=== PATIENT | female | born 1930 | race Caucasian/White ===

== ENCOUNTER → 2016-09-18 | Outpatient (CLI) | payer BC ==
[~2016-09-18] MED LIST: ATOR-22 PO; CALCTAB5 PO; CLRUNK; CMDUNK; CRDCD240 PO; DYZ PO; MAGN400T6 PO; METO25TA56 PO
[2016-09-18 09:20] LABS: HEMATOCRIT 46.4 % (37-47); MEAN CELL VOLUME 93.5 fL (80-100); MEAN CORPUSCULAR HEMOGLOBIN 31.7 pg (25-34); MEAN CORPUSCULAR HGB CONC 33.8 g/dl (32-36); MEAN PLATELET VOLUME 11.2 fL (7.4-10.4); PLATELET COUNT 190 K/uL (130-400); RED BLOOD COUNT 4.96 M/uL (4.2-5.4); WHITE BLOOD COUNT 6.24 K/uL (4.8-10.8)
[2016-09-18 09:30] LABS: ALT/SGPT 32 U/L (12-78); BLOOD UREA NITROGEN 19 mg/dl (7-18); BUN/CREATININE RATIO 17.6 (10-20); CALCIUM 9.3 mg/dl (8.5-10.1); CARBON DIOXIDE 26 mmol/L (21-32); CHLORIDE 103 mmol/L (98-107); GLUCOSE 99 mg/dl (70-99); POTASSIUM 4.5 mmol/L (3.5-5.1); SODIUM 141 mmol/L (136-145)
[2016-09-18 09:40] LABS: ALB/GLOB RATIO 1.1 (0.9-2); ALKALINE PHOSPHATASE 95 U/L (45-117); AST/SGOT 29 U/L (15-37)
== END | disposition home or self-care (01) ==
LOC: C.LABFOXMH 08:51
PROVIDERS: ATTEND Internal Medicine
DX: I48.91 Unspecified atrial fibrillation (principal)

== ENCOUNTER → 2017-01-08 | Outpatient (CLI) | payer BC ==
[2017-01-08 10:33] LABS: BLOOD UREA NITROGEN 17 mg/dl (7-18); BUN/CREATININE RATIO 17.5 (10-20); CALCIUM 9.1 mg/dl (8.5-10.1); CARBON DIOXIDE 29 mmol/L (21-32); CHLORIDE 108 mmol/L (98-107); CREATININE 0.96 mg/dl (0.60-1.20); GLUCOSE 90 mg/dl (70-99); POTASSIUM 4.4 mmol/L (3.5-5.1); SODIUM 143 mmol/L (136-145)
== END | disposition home or self-care (01) ==
LOC: C.LABFOXMH 10:00
PROVIDERS: ATTEND Internal Medicine
DX: Z51.81 Encounter for therapeutic drug level monitoring (principal); Z79.899 Other long term (current) drug therapy

== ENCOUNTER → 2017-05-13 | Outpatient (CLI) | payer BC ==
[2017-05-13 09:03] LABS: ALT/SGPT 27 U/L (12-78); BLOOD UREA NITROGEN 21 mg/dl (7-18); BUN/CREATININE RATIO 20.6 (10-20); CALCIUM 9.5 mg/dl (8.5-10.1); CARBON DIOXIDE 29 mmol/L (21-32); CHLORIDE 106 mmol/L (98-107); GLUCOSE 98 mg/dl (70-99); POTASSIUM 4.5 mmol/L (3.5-5.1); SODIUM 141 mmol/L (136-145)
[2017-05-13 09:06] LABS: ALKALINE PHOSPHATASE 96 U/L (45-117); AST/SGOT 23 U/L (15-37)
== END | disposition home or self-care (01) ==
LOC: C.LABFOXMH 08:35
PROVIDERS: ATTEND Internal Medicine
DX: I48.91 Unspecified atrial fibrillation (principal)

== ENCOUNTER 2019-05-13 16:50 | Observation (INO) ==
--- NOTE | 2019-05-13 18:26 | XRay Report ---
XR chest 1V portable CLINICAL HISTORY: preop COMPARISON STUDY: No previous studies for comparison. FINDINGS: The bones soft tissues and hemidiaphragms are normal. The cardiomediastinal silhouette is n ormal. The lungs are clear. The pulmonary vasculature is normal. Mild stable cardiomegaly. Significan t degenerative change right shoulder IMPRESSION: Negative chest. The above report was generated using voice recognition software. It may contain grammatical, syntax or spelling errors. Electronically signed by: Onofre Pelayo M.D. 05/13/2019 6:24 PM
[2019-05-13 18:31] LABS: INR 1.3 (0.9-1.1); Partial Thromboplastin Ratio 1.6; Partial Thromboplastin Time 44.4 Seconds (21.0-31.0); Prothrombin Time 13.2 Seconds (9.0-12.0)
[2019-05-13] MEDS: dilTIAZem HCl 5 MG/ML 5 ML VIAL IV STA ×2 (19:13→19:15)
--- NOTE | 2019-05-13 19:44 | History & Physical Report ---
Date of Service May 13, 2019 Assessment & Plan (1) Acute appendicitis: we had a long discussion regarding her options. certainly she is a reasonably high surgical risk, in afib with tachycardia currently, and on xarelto. option 1: to OR tonight urgently. we discussed risks of bleedin g/SD/Pe/dvt/bleeding/injury to an organ etc.... option 2: admit. npo/antibiotics/pain control. obtain cardiac/medicine consults. if it improves we could consider elective appendectomy in 6-8 weeks vs observation. if symptoms do not improve or worsen, we may need to operate anyway this admission however this would buy us some time off the xarelto. added risk of possible perforation of the appendix with this option after discussion, she would like to attempt option 2 which I agree with. will admit and start zosyn and pain control. consult cardiology and IM. will hold xarelto. monitor pt and labs. (2) HTN (hypertension): (3) Permanent atrial fibrillation: History of Present Illness Primary Care Provider: Maggi Garcia pt began with mild abdominal pain on Saturday....got better on saturday but worse again on Saturday. Saw a CLIENT CARE REPRESENTATIVE who ordered a CT scan outpt which shows acute appendicitis. no perforation or abcess. ? developing phlegmon Allergies Allergy/AdvReac Type Severity Reaction Status Date / Time Sulfa (Sulfonamide Allergy Mild RASH ON Verified 05/13/19 18:18 Antibiotics) CHEST sulfa Allergy Rash Uncoded 05/13/19 18:18 Home Medications Home Medications Medication Instructions Recorded Confirmed Type acetaminophen 500 mg tablet 500 - 1,000 mg PO Q6H PRN 05/04/19 05/13/19 History atorvastatin 20 mg tablet 20 mg PO QPM 05/04/19 05/13/19 History cholecalciferol (vitamin D3) 2,000 2,000 units PO BID cap 05/04/19 05/13/19 History unit capsule diltiazem ER 240 mg capsule,24 240 mg PO DAILY 05/04/19 05/13/19 History hr,extended release ibuprofen 200 mg capsule 200 mg PO QID PRN 05/04/19 05/13/19 History loratadine 10 mg tablet 10 mg PO DAILY PRN 05/04/19 05/13/19 History magnesium oxide 400 mg (241.3 mg 400 mg PO BID tab 05/04/19 05/13/19 History magnesium) tablet metoprolol succinate ER 25 mg 25 mg PO BID 05/04/19 05/13/19 History tablet,extended release 24 hr metoprolol tartrate 25 mg tablet 25 mg PO BID PRN 05/04/19 05/13/19 History multivitamin tablet 1 tab PO DAILY 05/04/19 05/13/19 History rivaroxaban 15 mg tablet 15 mg PO QPM 05/04/19 05/13/19 History spironolactone 25 mg tablet 25 mg PO DAILY 05/04/19 05/13/19 History digoxin 125 mcg tablet 125 mcg PO Q2D #45 tab 05/05/19 05/13/19 Rx Past Med/Surg History Medical History Edema Hypercholesterolemia Hyperglycemia HTN (hypertension) Permanent atrial fibrillation Family History Other Family history non-contributory Social History Feels Safe at Home: Yes Smoking Status: Never smoker Review of Systems All systems reviewed & are unremarkable except as noted in HPI & below has been in normal state of alma without complaint prior to Saturday. See's Dr. Harmon for her Afib Physical Exam Constitutional: WD/WN, vitals as above no acute distress and not ill appearing Eyes: PERRL, conjunctivae normal, anicteric sclerae EOM intact bilaterally ENMT: external ear and nose normal, oropharynx normal Ears: no hearing impairment Neck: trachea midline, no thyromegaly Respiratory: normal respiratory effort; no respiratory distress and does not use accessory muscles Cardiovascular: Rate/Rhythm: + tachycardic and + irregularly irregular Gastrointestinal (Abdomen): Percussion/Palpation: + abdomen tender and abdomen soft; no guarding and abdomen not rigid +rovsing sign. no guarding or rigidity. appears comfortable. moving freely on the bed states pain a 6/10 which she blames primarily on drinking the contrast. Skin: no rashes, warm and dry Psychiatric: Orientation: alert, oriented x 3 and cooperative Results & Data Vital Signs (Past 12 Hours) Vital Signs Temp Pulse Pulse Resp BP BP Pulse Ox 05/13/19 19:23 117 H 20 145/96 H 99 05/13/19 19:00 145/96 H 05/13/19 18:50 115 H 17 98 05/13/19 18:40 115 H 24 98 05/13/19 18:35 144 H 23 97 05/13/19 18:31 152 H 39 H 137/94 05/13/19 17:00 36.4 C L 120 H 18 148/86 H 95
[2019-05-13] MEDS ORDERED: dilTIAZem HCl 5 MG/ML 5 ML VIAL IV STA (19:59)
[2019-05-13] MEDS ORDERED: ONDANSETRON INJ 2 MG/ML 2 ML VIAL IV STA (20:41)
[2019-05-13] MEDS ORDERED: MoRPHine SULFATE 4 MG/ML 1 ML CARP\\VIAL IV STA (20:41)
[2019-05-13] MEDS ORDERED: METOPROLOL TARTRATE 25 MG TAB PO PRN (21:48)
[2019-05-13] MEDS ORDERED: ONDANSETRON INJ 2 MG/ML 2 ML VIAL IV PRN (21:48)
[2019-05-13] MEDS ORDERED: PIPERACILL/TAZOBAC CONSULT ACTIVE PRN (21:48)
[2019-05-13] MEDS ORDERED: PIPERACILLIN/TAZOBACTAM 3.375 GM in DEXTROSE 5% 100 ML IV ONE (22:00)
--- NOTE | 2019-05-13 22:43 | Hospitalist Consultation ---
Date of Consultation May 13, 2019 Assessment & Plan (1) Acute appendicitis: Admitted under surgical team care N.p.o. IV fluid hydration Continue Zosyn Patient benefits from any surgical intervention outweighs risks thus she is medically cleared for appendicectomy, granted that if any urgent procedure needed to be done within the next 2 days, Xarelto should be reversed, pharmacy consult should be obtained to assist with reversal of Xarelto. Will obtain basic labs in a.m. including blood cultures (2) Atrial fibrillation with RVR: Last dose of Xarelto was today Can start heparin drip tomorrow If surgery is needed Xarelto will need to be reversed Currently rate controlled Continue digoxin, metoprolol, Cardizem (3) Hypercholesterolemia: Patient is on Lipitor at home. Okay to hold for few days and restart Lipitor at discharge (4) HTN (hypertension): Blood pressure is currently controlled on the metoprolol, Cardizem Okay to keep holding Aldactone History of Present Illness Attending Physician: Oni Barr, DO 88 years old female with past medical history of essential hypertension, atrial fibrillation on Xarelto and dyslipidemia, she was in her regular state of health until 3 days prior to admission when she developed lower abdominal pain. Pain was squeezing and crampy in nature, mild to moderate in intensity. Denies any diarrhea or vomiting or nausea with the pain. Pain was intermittent weaning off and on. Yesterday the pain became more intense and started to become stabbing in nature and referred to her back. She went to the medical office in the assisted living facility she lives and, the nurse practitioner sent her for a CT abdomen which showed findings consistent with acute appendicitis and developing 2 x 2 centimeter phlegmon adjacent to the appendiceal tip. Patient was sent to the ED for further evaluation and management. In ED received IV fluids and morphine and abdominal pain much improved. She takes Xarelto for atrial fibrillation and last dose of Xarelto was taken this morning at 9 AM. Allergies Allergy/AdvReac Type Severity Reaction Status Date / Time Sulfa (Sulfonamide Allergy Mild RASH ON Verified 05/13/19 18:18 Antibiotics) CHEST Home Medications Home Medications Medication Instructions Recorded Confirmed Type acetaminophen 500 mg tablet 500 - 1,000 mg PO Q6H PRN 05/04/19 05/13/19 History atorvastatin 20 mg tablet 20 mg PO QPM 05/04/19 05/13/19 History cholecalciferol (vitamin D3) 2,000 2,000 units PO BID cap 05/04/19 05/13/19 History unit capsule diltiazem ER 240 mg capsule,24 240 mg PO DAILY 05/04/19 05/13/19 History hr,extended release ibuprofen 200 mg capsule 200 mg PO QID PRN 05/04/19 05/13/19 History loratadine 10 mg tablet 10 mg PO DAILY PRN 05/04/19 05/13/19 History magnesium oxide 400 mg (241.3 mg 400 mg PO BID tab 05/04/19 05/13/19 History magnesium) tablet metoprolol succinate ER 25 mg 25 mg PO BID 05/04/19 05/13/19 History tablet,extended release 24 hr metoprolol tartrate 25 mg tablet 25 mg PO BID PRN 05/04/19 05/13/19 History multivitamin tablet 1 tab PO DAILY 05/04/19 05/13/19 History rivaroxaban 15 mg tablet 15 mg PO QPM 05/04/19 05/13/19 History spironolactone 25 mg tablet 25 mg PO DAILY 05/04/19 05/13/19 History digoxin 125 mcg tablet 125 mcg PO Q2D #45 tab 05/05/19 05/13/19 Rx Patient History Medical History Edema Hypercholesterolemia Hyperglycemia HTN (hypertension) Permanent atrial fibrillation Family History Other Family history non-contributory Social History Feels Safe at Home: Yes Smoking Status: Never smoker Review of Systems Review of Systems: Review of system Constitutional: No fever / no chills / no sweats / no weakness / no fatigue Eyes: no blurring of vision / no eye pain / no discharge / no redness ENT: no hearing loss / no epistaxis /no swallowing problems Respiratory: no cough / no wheezing / no SOB / no hemoptysis Cardiovascular: no Chest pain / no lower extremity edema / no palpitation Abdomen: Aside from the abdominal pain she denies any diarrhea or vomit Musculoskeletal: no joint pain / no muscle pain / no joint swelling Genitourinary: no dysuria / no incontinence / no urinary retention Neurologic: no focal weakness / no numbness/tingling / no ataxia Psychiatric: no depression symptoms / no anxiety / no insomnia Endocrine: no excessive thirst / no excessive urination Hematologic: no abnormal bleeding / no bruising / no LN swelling Skin: No rash / no pallor Physical Exam Physical Exam: Physical examination General patient appears to be comfortable, not in acute distress HEENT: Atraumatic , normocephalic /no jaundice /no pallor /anicteric /no dry mucous membrane /normal external ear inspection Neck: Supple /no swelling /central trach Heart: S1/S2 normal/regular rate and rhythm/no gallop /no rub /no murmur Lungs: Clear to auscultation bilaterally/normal chest with expansion/no rhonchi/no rales/no wheezing/no use of accessory muscles of respiration Abdomen: Positive for right lower quadrant abdominal tenderness and rebound, no guarding no masses felt Musculoskeletal: No swelling/no edema/no tenderness/normal range of motion Neuro exam: Awake alert oriented 3/cranial nerves II through XII appear to be intact/sensation intact/moves all extremities/no abnormal movements Psychiatric evaluation: No depressed mood/normal affect Skin: No rash on exposed skin area/no erythema Extremity: Normal pulse/no pitting edema/no clubbing or cyanosis Endocrine/lymphatic: No obvious lymphadenopathy /no lymphedema Results & Data Vital Signs (Past 12 Hours) Vital Signs Temp Pulse Pulse Resp BP BP Pulse Ox 05/13/19 21:26 103 H 18 137/103 H 96 05/13/19 19:23 117 H 20 145/96 H 99 05/13/19 19:00 145/96 H 05/13/19 18:50 115 H 17 98 05/13/19 18:40 115 H 24 98 05/13/19 18:35 144 H 23 97 05/13/19 18:31 152 H 39 H 137/94 05/13/19 17:00 36.4 C L 120 H 18 148/86 H 95 PG Care Time/CCT Total # of Minutes Spent Total Time Spent with Patient: Total time spent is greater than 50% in coordination of care (as documented) at patient's floor/unit and/or counseling patient: (1) Acute appendicitis Acute appendicitis type: unspecified acute appendicitis type Qualified Code(s): K35.80 - Unspecified acute appendicitis
[2019-05-13] MEDS: METOPROLOL SUCC 25MG EXT REL TAB PO SCH (23:05)
[2019-05-13] MEDS: LACTATED RINGER'S 1,000 ML IV SCH (23:06)
--- NOTE | 2019-05-13 23:11 | Emergency Department Note ---
Entered by Jane Desai acting as a scribe for Johnathon Amato MD History of Present Illness General Chief complaint: Abdominal Pain Stated complaint: APPENDICITIS - CAME FROM CT Source: patient Limitations: no limitations History of Present Illness Provider complaint: Abdominal pain Onset (ago): day(s) 3 Location: abdomen Radiation: non-radiation Severity: moderate Pain Consistency: + other (persistent ) Maximum Pain Intensity: 7 Quality: + constant Exacerbated By: + other (Drinking oral contrast) Associated symptoms: + other (Positive: right sided abdominal pain.); no chest pain and no shortness of breath The patient is an 88 year old female with past medical history of atrial fibrillation, edema, HTN, hyperglycemia, who presents to the ED with complaints of persistent right sided abdominal pain that started 3 days go. The pain is a soreness. No associated vomiting. No alleviating factors. She states that it is worse after she took the oral contrast for CT. The patient reports she took Xarelto for atrial fibrillation this morning. She denies chest pain or shortness of breath. She denies any urinary symptoms. She did have a CAT scan earlier today which showed appendicitis. Home Medications Home Medications Medication Instructions Recorded Confirmed Type acetaminophen 500 mg tablet 500 - 1,000 mg PO Q6H PRN 05/04/19 05/13/19 History atorvastatin 20 mg tablet 20 mg PO QPM 05/04/19 05/13/19 History cholecalciferol (vitamin D3) 2,000 2,000 units PO BID cap 05/04/19 05/13/19 History unit capsule diltiazem ER 240 mg capsule,24 240 mg PO DAILY 05/04/19 05/13/19 History hr,extended release ibuprofen 200 mg capsule 200 mg PO QID PRN 05/04/19 05/13/19 History loratadine 10 mg tablet 10 mg PO DAILY PRN 05/04/19 05/13/19 History magnesium oxide 400 mg (241.3 mg 400 mg PO BID tab 05/04/19 05/13/19 History magnesium) tablet metoprolol succinate ER 25 mg 25 mg PO BID 05/04/19 05/13/19 History tablet,extended release 24 hr metoprolol tartrate 25 mg tablet 25 mg PO BID PRN 05/04/19 05/13/19 History multivitamin tablet 1 tab PO DAILY 05/04/19 05/13/19 History rivaroxaban 15 mg tablet 15 mg PO QPM 05/04/19 05/13/19 History spironolactone 25 mg tablet 25 mg PO DAILY 05/04/19 05/13/19 History digoxin 125 mcg tablet 125 mcg PO Q2D #45 tab 05/05/19 05/13/19 Rx Allergies Allergy/AdvReac Type Severity Reaction Status Date / Time Sulfa (Sulfonamide Allergy Mild RASH ON Verified 05/13/19 18:18 Antibiotics) CHEST Past Med/Surg History Medical History Edema Hypercholesterolemia Hyperglycemia HTN (hypertension) Permanent atrial fibrillation Family History Other Family history non-contributory Social History Feels Safe at Home: Yes Smoking Status: Never smoker Review of Systems See HPI for pertinent positives & negatives. and A total of 10 systems reviewed and were otherwise negative Physical Exam Vital Signs Vital Signs - 24 hr 05/13/19 17:00 05/13/19 18:31 05/13/19 18:35 Temperature 36.4 C L Temperature Source Oral Sepsis Recent Fever Within 48 Hours No Sepsis New/Unexplained Change in Mental Status No Sepsis Action Taken by Nursing No Action Required Pulse Rate 120 H 152 H 144 H Pulse Rate [Apical] Pulse Rate from SpO2 Sensor 106 H Pulse Rhythm Regular Pulse Rhythm [Apical] Pulse Strength Normal Respiratory Rate 18 39 H 23 Respiratory Effort / Characteristics Non-Labored Respiratory Depth Normal Respiratory Pattern Regular Blood Pressure 148/86 H 137/94 Blood Pressure [Right Arm] Blood Pressure Mean 106 108 Blood Pressure Mean [Right Arm] Blood Pressure Position Sitting Pulse Oximetry 95 97 Oxygen Delivery Method Room Air 05/13/19 18:40 05/13/19 18:50 05/13/19 19:00 Temperature Temperature Source Sepsis Recent Fever Within 48 Hours Sepsis New/Unexplained Change in Mental Status Sepsis Action Taken by Nursing Pulse Rate 115 H 115 H Pulse Rate [Apical] Pulse Rate from SpO2 Sensor 111 H 109 H Pulse Rhythm Pulse Rhythm [Apical] Pulse Strength Respiratory Rate 24 17 Respiratory Effort / Characteristics Respiratory Depth Respiratory Pattern Blood Pressure 145/96 H Blood Pressure [Right Arm] Blood Pressure Mean 112 Blood Pressure Mean [Right Arm] Blood Pressure Position Pulse Oximetry 98 98 Oxygen Delivery Method 05/13/19 19:23 Temperature Temperature Source Sepsis Recent Fever Within 48 Hours Sepsis New/Unexplained Change in Mental Status Sepsis Action Taken by Nursing Pulse Rate Pulse Rate [Apical] 117 H Pulse Rate from SpO2 Sensor Pulse Rhythm Pulse Rhythm [Apical] Irregular Pulse Strength Respiratory Rate 20 Respiratory Effort / Characteristics Non-Labored Spontaneous Respiratory Depth Normal Respiratory Pattern Blood Pressure Blood Pressure [Right Arm] 145/96 H Blood Pressure Mean Blood Pressure Mean [Right Arm] 112 Blood Pressure Position Pulse Oximetry 99 Oxygen Delivery Method Room Air Constitutional: Vital signs reviewed. Eyes: Pupils are equal round reactive to light. Conjunctiva are noninjected. ENT: Pharynx is clear without erythema or exudate. Mucous membranes are moist. Neck supple without meningeal signs. Respiratory: Clear to auscultation bilaterally. Breath sounds are equal bilate rally. Cardiovascular: Tachycardic rate of 120. Regular rhythm. No rubs or gallops. GI: Soft and nondistended. Right lower quadrant tenderness, no guarding. Bowel sounds are present. Musculoskeletal: No peripheral edema. No lower extremity tenderness. Integumentary: No cyanosis. Neurological: The patient is awake and alert. No focal deficits. Psychiatric: Normal affect. Course 1752: The patient was evaluated in room C8. A complete history and physical exam was performed. 1831: I discussed the sharon's case with Dr. Barr, General Surgery. 1911: I checked on the patient. She still has not gotten the Cardizem yet. 1957: I checked on the patient. She is still tachycardic. Dr. Barr is admitting her for IV antibiotics. 2034: The patient is having abdominal pain and is requesting pain medications. Consultations Consultation #1: I discussed the sharon's case with Dr. Barr, General Surgery. Time: 18:32 Administered Medications Lactated Ringer's (Lr) 1,000 mls @ 100 mls/hr IV .Q10H JADA Stop: 06/12/19 21:47 Last Admin: 05/13/19 23:06 Dose: 100 mls/hr Documented by: [id number] Cosigned by: [id number] Metoprolol Succinate (Toprol Xl) 25 mg PO BID JADA Stop: 06/12/19 21:47 Last Admin: 05/13/19 23:05 Dose: 25 mg Documented by: [id number] Cosigned by: [id number] Discontinued Medications Diltiazem HCl (Cardizem) 5 mg IV NOW STA Stop: 05/13/19 18:32 Last Admin: 05/13/19 19:15 Dose: 5 mg Documented by: [id number] Cosigned by: [id number] Diltiazem HCl (Cardizem) 5 mg IV NOW STA Stop: 05/13/19 20:00 Last Admin: 05/13/19 20:38 Dose: 5 mg Documented by: [id number] Cosigned by: [id number] Piperacillin Sod/Tazobactam (Sod 3.375 gm/ Dextrose) 115 mls @ 230 mls/hr IV ONE ONE; Protocol Stop: 05/13/19 22:29 Last Admin: 05/13/19 22:43 Dose: 230 mls/hr Documented by: [id number] Cosigned by: [id number] Morphine Sulfate (Morphine Sulfate) 4 mg IV NOW STA Stop: 05/13/19 20:42 Last Admin: 05/13/19 20:46 Dose: 4 mg Documented by: [id number] Ondansetron HCl (Zofran) 4 mg IV NOW STA Stop: 05/13/19 20:42 Last Admin: 05/13/19 20:46 Dose: 4 mg Documented by: [id number] Medical Decision Making Differential Diagnosis Differential Diagnosis: Dysthymia, atrial fibrillation with RVR, anxiety, appendicitis, phlegmon Medical Records Attestation: I reviewed the patient's medical records. The patient had a CT scan at 2 o'clock today which showed acute appendicitis with phlegmon Home Medications Current Medication List: was personally reviewed by me Laboratory Data Attestation: I reviewed the patient's lab results. Lab Results 05/13/19 05/13/19 Range/Units 18:10 18:10 PT 13.2 H (9.0-12.0) Seconds INR 1.3 H (0.9-1.1) APTT 44.4 H (21.0-31.0) Seconds PTT Ratio 1.6 Magnesium 2.4 (1.8-2.4) mg/dl Imaging Data Radiologist's Impression: Radiology results as stated below per my review and the radiologist's interpretation: XR chest 1V portable CLINICAL HISTORY: preop COMPARISON STUDY: No previous studies for comparison. FINDINGS: The bones soft tissues and hemidiaphragms are normal. The cardio mediastinal silhouette is normal. The lungs are clear. The pulmonary vasculature is normal. Mild stable cardiomegaly. Significant degenerative change right shoulder IMPRESSION: Negative chest. The above report was generated using voice recognition software. It may contain grammatical, syntax or spelling errors. Electronically signed by: Onofre Pelayo M.D. 05/13/2019 6:24 PM ECG Data Attestation: I personally reviewed and interpreted this ECG as follows: Indication: palpitations Rate (beats per minute): 111 Rhythm: atrial fibrillation Findings: no PVC and no ST elevation Blood Pressure Blood Pressure Findings: Elevated blood pressure Blood Pressure Disposition: further management by hospitalist SIDDHARTH aBer I did evaluate the patient as noted above. The patient is presenting with right-sided abdominal pain and had a CT earlier today which showed on my e xamination she is tachycardic. She does have a history of A. fib and takes Xarelto. She last took her Xarelto at 9 AM today. IV access was established. The patient was placed on a continuous quality assurance monitor chassis. I did order and personally review the patient's 12-lead EKG as described above. She has A. fib with RVR. I did treat her with 2 boluses of Cardizem IV. I did order and personally reviewed the images of the patient's chest x-ray as described above. There is no evidence of acute infiltrate. I did order and review the patient's blood work as noted in the electronic medical record. INR is 1.3. I did treat the patient with morphine and Zofran IV. I did discuss the case with Dr. Barr of surgery who came to evaluate the patient in the to the hospital. Because she is on Xarelto she will not go to the OR right away and was treated with IV antibiotics. Impression & Plan Acute appendicitis, Atrial fibrillation with RVR, Anticoagulated Discharge Plan Visit Data *Final* Discharge Date/Time: 05/13/19 21:26 Chief Complaint: Abdominal Pain Stated Complaint: APPENDICITIS - CAME FROM CT ED Provider: Johnathon Amato Discharge Problem: Acute appendicitis, Atrial fibrillation with RVR, Anticoagulated Patient Disposition: Admitted As Inpatient Discharge Instructions Interventions: ED Discharge Assessment Last Done: 05/13/19 21:26 Discharge Problem: Acute appendicitis Qualifiers: Acute appendicitis type: unspecified acute appendicitis type Qualified Code(s): K35.80 - Unspecified acute appendicitis The scribe's documentation has been prepared under my direction and personally reviewed by me in its entirety. I confirm that the note above accurately reflects all work, treatment, procedures, and medical decision making performed by me.
[2019-05-14] MEDS: PIPERACILLIN/TAZOBACTAM 3.375 GM in DEXTROSE 5% 100 ML IV SCH ×3 (03:57→20:06)
[2019-05-14] MEDS: HYDROmorphone INJ 1 MG/ML SYRINGE IV PRN ×2 (03:57→18:21)
[2019-05-14 07:24] LABS: Basophils # (auto) 0.01 K/uL (0-0.2); Basophils % (auto) 0.1 %; Eosinophils # (auto) 0.01 K/uL (0-0.5); Eosinophils % (auto) 0.1 %; Hematocrit (blood only) 42.2 % (37-47); Hemoglobin 14.2 g/dL (12.0-16.0); Immature Granulocytes # (auto) 0.02 K/uL (0.00-0.02); Immature Granulocytes % (auto) 0.2 %; Lymphocytes # (auto) 1.03 K/uL (1.2-3.4); Lymphocytes % (auto) 8.7 %; Mean Corpuscular Hemoglobin 31.7 pg (25-34); Mean Corpuscular Hgb Conc 33.6 g/dL (32-36); Mean Corpuscular Volume 94.2 fL (80-100); Mean Platelet Volume 10.2 fL (7.4-10.4); Monocytes # (auto) 1.21 K/uL (0.11-0.59); Monocytes % (auto) 10.2 %; Neutrophils # (auto) 9.55 K/uL (1.4-6.5); Neutrophils % (auto) 80.7 %; Platelet Count 135 K/uL (130-400); RDW Coefficient of Variation 13.1 % (11.5-14.5); RDW Standard Deviation 45.1 fL (36.4-46.3); Red Blood Count 4.48 M/uL (4.2-5.4); White Blood Count 11.83 K/uL (4.8-10.8)
[2019-05-14 07:30] LABS: INR 1.1 (0.9-1.1); Prothrombin Time 11.5 Seconds (9.0-12.0)
[2019-05-14 07:50] LABS: Albumin Level 2.8 gm/dl (3.4-5.0); BUN Creatinine Ratio 17.9 (10-20); Calcium 8.8 mg/dl (8.5-10.1); Creatinine Clr Calc Pharmacy 48.9 ml/min; Est GFR (African American) 82.5; Est GFR (Non-African American) 71.2
[2019-05-14 07:53] LABS: Albumin Globulin Ratio 0.8 (0.9-2); Bilirubin,Total 1.9 mg/dl (0.2-1); Globulin 3.7 gm/dl (2.5-4.0); Total Protein 6.5 gm/dl (6.4-8.2)
[2019-05-14] MEDS: METOPROLOL SUCC 25MG EXT REL TAB PO SCH ×2 (07:54→20:06)
[2019-05-14] MEDS: dilTIAZem HCL 240 MG CAPCR PO SCH (07:55)
[2019-05-14] MEDS: LACTATED RINGER'S 1,000 ML IV SCH ×2 (09:13→18:24)
--- NOTE | 2019-05-14 09:38 | Cardiology Consultation ---
Date of Consultation May 14, 2019 Assessment & Plan (1) Acute appendicitis: The patient is currently being treated with intravenous antibiotics and analgesics. She is an acceptable cardiac risk for surgery 48 hours after her last dose of Xarelto. (2) Permanent atrial fibrillation: The patient's rate is adequately controlled on the combination of metoprolol succinate, long-acting diltiazem, and digoxin. Xarelto currently on hold for her upcoming surgical intervention. (3) Anticoagulated: The patient's last dose of Xarelto was at 9:30 a.m. on May 13. If possible, would avoid surgery for 48 hours following her last dose. Do not recommend the use of Andexanet crystal (Factor Xa reversal agent) at this time as a carries a risk of thrombosis. (4) HTN (hypertension): Adequate control on her current medical regimen. (5) Hypercholesterolemia: Atorvastatin currently on hold. History of Present Illness Attending Physician: Oni Barr DO History of Present Illness Mrs. Shin is an 88-year-old female admitted yesterday with an acute appendicitis. This consultation was ordered as a preoperative evaluation. The patient was in her usual state of health until May 10 when she began to notice intermittent diffuse abdominal discomfort. She was seen by nurse practitioner at her assisted living facility and a CT scan of the abdomen was ordered. This showed an acute appendicitis with a 2 x 2 cm phlegmon adjacent to the appendiceal tip. She was sent to the emergency room for further evaluation. The patient has a longstanding history of hypertension and hypercholesterolemia. Both of these conditions have been well controlled. She also carries a history of permanent atrial fibrillation. She takes diltiazem and metoprolol tartrate for rate control. She is also on dose adjusted Xarelto as her anticoagulant. Her last dose Xarelto was at 9:30 a.m. on May 13. The patient is active on a daily basis caring for her apartment. She is able to climb several flights of stairs without difficulty. She has never experienced exertional chest pain. She occasionally notes dyspnea with vigorous physical activity. She further denies syncope, presyncope, PND, orthopnea, lower extremity edema, palpitations, and claudication. Past medical and surgical history 1. Hypertension 2. Hypercholesterolemia 3. Permanent atrial fibrillation 4. Hyperglycemia 5. Tubal ligation 6. History of nasal surgery Social history The patient is , but her lives in a dementia unit at [facility]. Quit tobacco use 58 years ago Drinks 1 or 2 glasses of wine every day Family history Mother at 49 from SBE Father at 65 from a CVA No early coronary artery disease Review of systems A 10 point review of systems was negative except for that described above. Allergies Allergy/AdvReac Type Severity Reaction Status Date / Time Sulfa (Sulfonamide Allergy Mild RASH ON Verified 05/13/19 18:18 Antibiotics) CHEST Home Medications Home Medications Medication Instructions Recorded Confirmed Type acetaminophen 500 mg tablet 500 - 1,000 mg PO Q6H PRN 05/04/19 05/13/19 History atorvastatin 20 mg tablet 20 mg PO QPM 05/04/19 05/13/19 History cholecalciferol (vitamin D3) 2,000 2,000 units PO BID cap 05/04/19 05/13/19 History unit capsule diltiazem ER 240 mg capsule,24 240 mg PO DAILY 05/04/19 05/13/19 History hr,extended release ibuprofen 200 mg capsule 200 mg PO QID PRN 05/04/19 05/13/19 History loratadine 10 mg tablet 10 mg PO DAILY PRN 05/04/19 05/13/19 History magnesium oxide 400 mg (241.3 mg 400 mg PO BID tab 05/04/19 05/13/19 History magnesium) tablet metoprolol succinate ER 25 mg 25 mg PO BID 05/04/19 05/13/19 History tablet,extended release 24 hr metoprolol tartrate 25 mg tablet 25 mg PO BID PRN 05/04/19 05/13/19 History multivitamin tablet 1 tab PO DAILY 05/04/19 05/13/19 History rivaroxaban 15 mg tablet 15 mg PO QPM 05/04/19 05/13/19 History spironolactone 25 mg tablet 25 mg PO DAILY 05/04/19 05/13/19 History digoxin 125 mcg tablet 125 mcg PO Q2D #45 tab 05/05/19 05/13/19 Rx Patient History Medical History Edema Hypercholesterolemia Hyperglycemia HTN (hypertension) Permanent atrial fibrillation Family History Other Family history non-contributory Social History Preferred Language: Lithuanian Communication Ability: Effective Service Provider Required: No Beliefs That Will Affect Care: None Current Living Situation: Alone Other Information That Helps Us Care for You: No Feels Safe at Home: Yes Safety Concerns: Feels Safe At This Time Smoking Status: Former smoker Tobacco Type: cigarettes ; Do You Dip or Chew Tobacco: No ; Second Hand Exposure: No ; Tobacco Cessation Education Requested by Patient: No Hx Alcohol Use: Yes Alcohol type: wine Hx Substance Use: No Physical Exam Physical Exam: In general is well-developed well-nourished white female no acute distress. HEENT exam is negative. Neck is supple with full carotid upstrokes. No carotid bruits. Jugular venous pressure is flat at 90. There is no thyromegaly. Cardiovascular exam reveals irregular regular rhythm with distant heart sounds. No obvious murmurs. Lungs are clear without rales, rhonchi or wheezes. Abdomen is soft but tender diffusely. Normal bowel sounds. No bruits. Extremities reveal intact radial artery pulses bilaterally. There is no peripheral edema. Results & Data Vital Signs (Past 12 Hours) Vital Signs Temp Pulse Pulse Pulse Resp BP BP 05/14/19 07:00 36.6 C 109 H 18 05/14/19 04:08 37.0 C 115 H 18 05/13/19 23:57 36.8 C 116 H 20 111/74 05/13/19 22:20 119 H 05/13/19 21:32 37.1 C 134 H 136 H 18 139/93 05/13/19 21:26 103 H 18 137/103 H BP Pulse Ox 05/14/19 07:00 103/70 90 05/14/19 04:08 123/82 91 05/13/19 23:57 92 05/13/19 22:20 05/13/19 21:32 97 05/13/19 21:26 96 Laboratory Results CBC notes a hemoglobin of 14.2, crit 42.2, white count 11.8, platelet count [id number]. Electrolytes note a sodium of 135, potassium 4.0, chloride 102, bicarb 24, BUN 13, creatinine 0.75, and glucose of 90. Diagnostic Findings Chest x-ray shows no acute disease. EKG notes atrial fibrillation with a rapid ventricular response at 110 beats per minute. There is left axis deviation and low voltage throughout. Poor R-wave progression noted across the anterior precordium. PG Care Time/CCT Total # of Minutes Spent Total Time Spent with Patient: Total time spent is greater than 50% in coordination of care (as documented) at patient's floor/unit and/or counseling patient: (1) Acute appendicitis Acute appendicitis type: unspecified acute appendicitis type Qualified Code(s): K35.80 - Unspecified acute appendicitis
--- NOTE | 2019-05-14 11:09 | Surgery Progress Note ---
Date of Service May 14, 2019 Assessment & Plan (1) Acute appendicitis: WBC unchanged, afebrile would prefer to wait another 24 hours for appendectomy but will re-eval this afternoon as above. pt feeling continually worse. exam worse/ +guarding now with mild peritoneal signs. discussed options/risks. risks of bleeding increased b/c of xarelto. will proceed with lap appy this afternoon. consent signed. Subjective having a little more pain this AM, last had pain med 7 hours ago, no fevers or chills Physical Exam Gastrointestinal (Abdomen): Percussion/Palpation: + abdomen tender (RLQ) and abdomen soft Results & Data Vital Signs (Past 12 Hours) Vital Signs Temp Pulse Pulse Resp BP BP Pulse Ox 05/14/19 07:00 36.6 C 109 H 18 103/70 90 05/14/19 04:08 37.0 C 115 H 18 123/82 91 05/13/19 23:57 36.8 C 116 H 20 111/74 92 PG Care Time/CCT Total # of Minutes Spent Total Time Spent with Patient: Total time spent is greater than 50% in coordination of care (as documented) at patient's floor/unit and/or counseling patient: (1) Acute appendicitis Acute appendicitis type: unspecified acute appendicitis type Qualified Code(s): K35.80 - Unspecified acute appendicitis
[2019-05-14] MEDS: ACETAMINOPHEN 1,000 MG/100 ML VIAL IV PRN (12:10)
[2019-05-14] MEDS ORDERED: GLYCOPYRROLATE 0.2 MG/ML VIAL ONE (15:32)
[2019-05-14] MEDS ORDERED: NEOSTIGMINE METHYLSULFATE 5 MG/5 ML SYR ONE (15:32)
[2019-05-14] MEDS ORDERED: fentaNYL citrate 100 MCG/2 ML VIAL ONE ×2 (15:32→16:42)
[2019-05-14] MEDS ORDERED: DEXAMETHASONE SOD INJ 4 MG/ML VIAL ONE (15:32)
[2019-05-14] MEDS ORDERED: ONDANSETRON INJ 2 MG/ML 2 ML VIAL ONE (15:32)
[2019-05-14] MEDS ORDERED: ROCURONIUM BROMIDE 10 MG/ML 5 ML VIAL ONE (15:32)
[2019-05-14] MEDS ORDERED: LIDOCAINE HCL 2% 2 ML VIAL/AMP(20MG/ML) INFIL ONE (15:32)
[2019-05-14] MEDS ORDERED: PROPOFOL IV EMULSION 10 MG/ML 20 ML VIAL IV ONE (15:32)
[2019-05-14] MEDS ORDERED: BUPIVACAINE/EPINEPHRINE 0.5% MPF 1:200,000 30 ML VIAL ONE (15:41)
[2019-05-14] MEDS ORDERED: ATROPINE SULFATE 0.1 MG/ML 10ML SYR IV PRN (15:49)
[2019-05-14] MEDS ORDERED: ONDANSETRON INJ 2 MG/ML 2 ML VIAL IV PRN (15:49)
[2019-05-14] MEDS ORDERED: ePHEDrine sulfate 50 MG/ML AMP IV PRN (15:49)
--- NOTE | 2019-05-14 15:49 | Anesthesiology Consultation ---
Date of Service May 14, 2019 HTN Permanent AFib Assessment & Plan (1) Encounter for pre-operative examination: Chart Review Chart Review: Acceptable Risk for Surgery and Patient NOT seen in Pre Admission Testing Consults Requested none ASA [id number] Proposed Anesthesia Anesthesia Type: General Risk / Benefits Reviewed With: PT / POA / Parent / Guardian, Accepts Plan and Informed Consent Obtained History Surgery Operation Date: 05/14/19 13:10 Proposed Procedures p Laparoscopic Appendectomy - Oni Barr, Height/Weight Height: 5 ft 2 in Weight: 74.1 kg Allergies Allergy/AdvReac Type Severity Reaction Status Date / Time Sulfa (Sulfonamide Allergy Mild RASH ON Verified 05/13/19 18:18 Antibiotics) CHEST Medications Home Medications Medication Instructions Recorded Confirmed Last Taken acetaminophen 500 mg tablet 500 - 1,000 mg PO Q6H PRN 05/04/19 05/13/19 Unknown atorvastatin 20 mg tablet 20 mg PO QPM 05/04/19 05/13/19 05/12/19 cholecalciferol (vitamin D3) 2,000 2,000 units PO BID cap 05/04/19 05/13/19 05/13/19 unit capsule diltiazem ER 240 mg capsule,24 240 mg PO DAILY 05/04/19 05/13/19 05/13/19 hr,extended release ibuprofen 200 mg capsule 200 mg PO QID PRN 05/04/19 05/13/19 Unknown loratadine 10 mg tablet 10 mg PO DAILY PRN 05/04/19 05/13/19 05/13/19 magnesium oxide 400 mg (241.3 mg 400 mg PO BID tab 05/04/19 05/13/19 05/13/19 magnesium) tablet metoprolol succinate ER 25 mg 25 mg PO BID 05/04/19 05/13/19 05/13/19 tablet,extended release 24 hr metoprolol tartrate 25 mg tablet 25 mg PO BID PRN 05/04/19 05/13/19 Unknown multivitamin tablet 1 tab PO DAILY 05/04/19 05/13/19 05/13/19 rivaroxaban 15 mg tablet 15 mg PO QPM 05/04/19 05/13/19 05/13/19 spironolactone 25 mg tablet 25 mg PO DAILY 05/04/19 05/13/19 05/13/19 digoxin 125 mcg tablet 125 mcg PO Q2D #45 tab 05/05/19 05/13/19 Unknown Active Medications Generic Name Dose Route Start Last Admin Trade Name Freq PRN Reason Stop Dose Admin Diltiazem HCl 240 mg 05/14/19 09:00 05/14/19 07:55 Cardizem Cd PO 06/13/19 08:59 240 mg DAILY JADA Administration Hydromorphone HCl 1 mg 05/13/19 21:48 05/14/19 03:57 Dilaudid IV 05/27/19 21:47 1 mg Q3H PRN Administration SEVERE Pain (Scale 7,8,9,10) Acetaminophen 1,000 mg in 100 mls @ 400 mls/hr 05/13/19 21:48 05/14/19 12:36 Ofirmev IV 06/12/19 21:47 Infused Q8H PRN Infusion MILD Pain (Scale 1,2,3) Piperacillin Sod/Tazobactam 115 mls @ 28.75 mls/hr 05/14/19 04:00 05/14/19 12:09 Sod 3.375 gm/ Dextrose IV 05/24/19 03:59 28.8 mls/hr Q8H JADA Administration Protocol Lactated Ringer's 1,000 mls @ 100 mls/hr 05/13/19 21:48 05/14/19 09:13 Lr IV 06/12/19 21:47 100 mls/hr .Q10H JADA Administration Metoprolol Succinate 25 mg 05/13/19 21:48 05/14/19 07:54 Toprol Xl PO 06/12/19 21:47 25 mg BID JADA Administration NPO Date Last Intake of Fluids: 05/14/19 Time Last Intake of Fluids: 14:25 Last Intake of Fluids Comment: sips of water. See note. Date Last Intake of Solids: 05/13/19 Time Last Intake of Solids: 08:00 Last Intake of Solids Comment: this morning with meds Past Medical History Medical History Edema Hypercholesterolemia Hyperglycemia HTN (hypertension) Permanent atrial fibrillation Exercise / Class Metabolic Activity II 4-5 Yardwork/Stairs/Walk up hill Past Family History Family History Other Family history non-contributory Past Anesthesia History No Hx of Anesthesia Complications and No Family Hx of Anesthesia Complications History of PONV No Hx of PONV and No Hx of Motion Sickness Social History Smoking Status: Former smoker tobacco type: cigarettes Do You Dip or Chew Tobacco: No Hx Alcohol Use: Yes Alcohol type: wine alcohol intake frequency: 0-2 drinks per day Hx Substance Use: No Physical Exam Vital Signs Last Vital Signs Temp 36.9 C 05/14/19 14:55 Pulse 92 H 05/14/19 14:55 Resp 18 05/14/19 14:55 BP 105/91 05/14/19 14:55 Pulse Ox 97 05/14/19 14:55 ENMT Mouth: no dentition abnormality Thyromental Distance: > or= 3.5 Finger Breadths Mallampati Class: II Neck normal visual inspection Respiratory normal respiratory effort Auscultation: lungs clear to auscultation bilaterally Cardiovascular Rate/Rhythm: regular rate and regular rhythm Psychiatric Orientation: alert Testing Laboratory Results 05/14/19 07:02 05/14/19 07:02 PT 11.5 Seconds (9.0-12.0) 05/14/19 07:02 INR 1.1 (0.9-1.1) 05/14/19 07:02 APTT 44.4 Seconds (21.0-31.0) H 05/13/19 18:10 Electrocardiogram Date: 05/13/19 Findings: + AFIB @ Chest X-Ray Date: 05/13/19 Findings: + NAD
[2019-05-14] MEDS ORDERED: CEFAZOLIN 2,000 MG/15 ML IV PUSH IV ONE (15:53)
[2019-05-14] MEDS ORDERED: CEFAZOLIN 2000MG 2,000 MG/15 ML SYR IV ONE (15:56)
[2019-05-14] MEDS ORDERED: ESMOLOL HCL INJ 10 MG/ML 10ML VIAL IV ONE (16:43)
--- NOTE | 2019-05-14 16:48 | Post Operative Brief Note ---
PG Immediate Post Op with CF Date of Surgery May 14, 2019 Pre & Post Diagnosis Operation Date: 05/14/19 13:10 Pre-Op Diagnosis: APPENDICITIS Post-Op Diagnosis: APPENDICITIS Procedure Operation Date: 05/14/19 13:10 Actual Procedures p Laparoscopic Appendectomy - Oni Barr DO Surgeon Oni Barr DO Reverberatory Skimmer tanya Nicolas Estimated Blood Loss 5 Findings Consistent with Post-Op Diagnosis Specimens Specimen Description: A. Appendix Drains Zhang Catheter (16 Lithuanian Zhang Catheter inserted without difficulty by Vishal Julien, MS2. Clear yellow urine obtained, Anesthesia to monitor) and Jg- Walsh Drain (10 flat )
[2019-05-14] MEDS ORDERED: ACETAMINOPHEN 1000 MG/100 ML IV IV ONE (16:53)
[2019-05-14] MEDS: fentaNYL citrate 100 MCG/2 ML VIAL IV PRN ×2 (17:16→17:21)
--- NOTE | 2019-05-14 17:52 | Anesthesiology Progress Note ---
Date of Service May 14, 2019 Anesthesia Post Procedure Vital Signs Vital Signs: Temp Pulse Pulse Pulse Resp BP BP 05/14/19 17:45 36.3 C L 100 H 19 113/71 05/14/19 17:35 93 H 19 117/75 05/14/19 17:25 92 H 20 111/73 05/14/19 17:15 36.6 C 98 H 20 122/72 05/14/19 17:05 36.6 C 108 H 18 130/76 05/14/19 16:58 36.6 C 104 H 16 128/81 05/14/19 14:55 36.9 C 92 H 18 105/91 05/14/19 14:50 83 05/14/19 11:29 36.9 C 103 H 18 05/14/19 07:00 36.6 C 109 H 18 05/14/19 04:08 37.0 C 115 H 18 05/13/19 23:57 36.8 C 116 H 20 111/74 05/13/19 22:20 119 H 05/13/19 21:32 37.1 C 134 H 136 H 18 139/93 05/13/19 21:26 103 H 18 137/103 H 05/13/19 19:23 117 H 20 05/13/19 19:00 145/96 H 05/13/19 18:50 115 H 17 05/13/19 18:40 115 H 24 05/13/19 18:35 144 H 23 05/13/19 18:31 152 H 39 H 137/94 BP Pulse Ox 05/14/19 17:45 95 05/14/19 17:35 95 05/14/19 17:25 97 05/14/19 17:15 97 05/14/19 17:05 100 05/14/19 16:58 99 05/14/19 14:55 97 05/14/19 14:50 05/14/19 11:29 107/66 93 05/14/19 07:00 103/70 90 05/14/19 04:08 123/82 91 05/13/19 23:57 92 05/13/19 22:20 05/13/19 21:32 97 05/13/19 21:26 96 05/13/19 19:23 145/96 H 99 05/13/19 19:00 09/18/19 18:50 98 05/13/19 18:40 98 05/13/19 18:35 97 05/13/19 18:31 Pain Intensity Abdomen: Pain Intensity: 3 Transfer of Care Handoff Completed per policy Notes Mental Status: alert / awake / arousable Patient Amnestic to Procedure: Yes Nausea / Vomiting: adequately controlled Pain: adequately controlled Airway Patency, RR, SpO2: stable & adequate BP & HR: stable & adequate Hydration State: stable & adequate Anesthetic Complications: no major complications apparent
--- NOTE | 2019-05-14 17:55 | Operative Report ---
Post Operative Report Pre & Post Diagnosis Operation Date: 05/14/19 13:10 Pre-Op Diagnosis: APPENDICITIS Post-Op Diagnosis: APPENDICITIS Procedure Operation Date: 05/14/19 13:10 Actual Procedures p Laparoscopic Appendectomy(Not Applicable) - Oni Barr DO Surgeon Oni Barr DO Patternator tanya Nicolas Estimated Blood Loss 5 Findings Consistent with Post-Op Diagnosis Specimens appendix Description of Procedure After informed consent was obtained the patient was taken to the operating room and placed in supine position. After successful intubation a Zhang catheter was placed and the left arm was tucked. A Zhang catheter was inserted sterilely. I began by making a periumbilical incision with an 11 blade scalpel and carried t his down through the soft tissue using electrocautery. The anterior rectus fascia was opened using electrocautery and 2 #0 Vicryl stay sutures were placed. The peritoneum was elevated using hemostats and incised under direct vision using a Metzenbaum scissor. A finger sweep was performed. A 12 mm Das trocar was placed and the abdomen was insufflated to 18 mmHg. A laparoscope was inserted and the abdomen was examined in 360. A suprapubic 5 mm port and a left lower quadrant 12 mm port were placed under direct vision. The patient was air planed to the left as well as placed in a slight Trendelenburg position. We began by looking in the right lower quadrant. We were able to readily identify the appendix and it was severely grossly inflamed. It had not perforated. There is a small amount of purulent fluid in the right lower quadrant and the pelvis. We immediately irrigated and suctioned this out. I was able to use primarily blunt dissection to pull the appendix away from the right lower quadrant sidewall. I was able to identify the base of the appendix and make a small window through the mesoappendix using [place] dissector. I transected the base of the appendix with a 60 mm brown cartridge stapler. I was then able to use a MELI 60 mm purple cartridge stapler to transect the mesentery of the appendix. It was then placed into an Endo Catch bag and removed from the camera port site. We thoroughly irrigated the right lower quadrant as well as the pelvis. There was adequate hemostasis. I ran the small bowel backwards from the terminal ileum for about 6 feet all of which was normal. All the peritoneal surfaces were normal. Small/ large bowel, liver, stomach etc. all appeared grossly normal. I placed a 10 flat Jg-Walsh drain from the pelvis extendin g up along the right paracolic gutter. We did a final irrigation and then removed all the trochars and desufflated the abdomen. The fascia of the camera port was closed using 0 Vicryl in a imtzed-ej-bepel fashion. The drain was sewn to the skin with 0 Vicryl as well. The wounds were all irrigated and closed using 4-0 Monocryl. Marcaine was injected around them for postoperative analgesia and skin glue used as a dressing. The patient was awakened extubated and transferred to recovery in stable condition. My physician's radiology assistant was present through the entire case. he assisted with prepping the patient and helped with exposure for port placement, helped run the camera and helped with fascial/wound closure at the end of the procedure as well as dressing placement. I attest to the content of the Intraoperative Record and any orders documented therein. Any exceptions are noted below. I attest to the content of the Intraoperative Record and any orders documented therein. Any exceptions are noted below.
--- NOTE | 2019-05-14 18:11 | Hospitalist Progress Note ---
Date of Service May 14, 2019 Assessment & Plan (1) Acute appendicitis: S/p lap appy with Dr. Barr on 05/14. - No complications per operative report - Post-op care per primary team (2) Atrial fibrillation with RVR: Last dose of Xarelto was 05/13. - Currently rate controlled - Continue digoxin, metoprolol, Cardizem - Will restart Xarelto in 1-2 days depending on surgical team desire. (3) Hypercholesterolemia: Patient is on Lipitor at home. - Okay to hold for few days and restart Lipitor at discharge (4) HTN (hypertension): Blood pressure is currently controlled on the metoprolol, Cardizem - Okay to keep holding Aldactone (5) DVT prophylaxis: SCDs - Will restart Xarelto for her afib when cleared by surgery Subjective Not a lot of pain while at rest, but definitely uncomfortable when moving. No different than yesterday. Review of Systems Review of Systems: All systems reviewed & are unremarkable except as noted in HPI & below Physical Exam Constitutional: WD/WN, vitals as above Eyes: EOM intact bilaterally; no conjunctival abnormality ENMT: external ear and nose normal, oropharynx normal Neck: trachea midline, no thyromegaly normal visual inspection Respiratory: normal respiratory effort, lungs clear to auscultation no respiratory distress Cardiovascular: RRR, no murmur, no edema Gastrointestinal (Abdomen): Inspection/Auscultation: abdomen normal to inspection and + hypoactive bowel sounds; abdomen not distended Percussion/Palpation: + abdomen tender (RLQ and right flank) and abdomen soft; no guarding and abdomen not rigid Musculoskeletal: no cyanosis or clubbing, extremities motor strength 5/5 Skin: no rashes, warm and dry Neurologic: moves all extremities and awake Psychiatric: Orientation: alert, oriented to person and cooperative Results & Data Vital Signs (Past 12 Hours) Vital Signs Temp Pulse Pulse Pulse Resp BP BP 05/14/19 17:55 36.3 C L 86 19 103/61 05/14/19 17:45 36.3 C L 100 H 19 113/71 05/14/19 17:35 93 H 19 117/75 05/14/19 17:25 92 H 20 111/73 05/14/19 17:15 36.6 C 98 H 20 122/72 05/14/19 17:05 36.6 C 108 H 18 130/76 05/14/19 16:58 36.6 C 104 H 16 128/81 05/14/19 14:55 36.9 C 92 H 18 105/91 05/14/19 14:50 83 05/14/19 11:29 36.9 C 103 H 18 107/66 05/14/19 07:00 36.6 C 109 H 18 103/70 Pulse Ox 05/14/19 17:55 95 05/14/19 17:45 95 05/14/19 17:35 95 05/14/19 17:25 97 05/14/19 17:15 97 05/14/19 17:05 100 05/14/19 16:58 99 05/14/19 14:55 97 05/14/19 14:50 05/14/19 11:29 93 05/14/19 07:00 90 PG Care Time/CCT Total # of Minutes Spent Total Time Spent with Patient: Total time spent is greater than 50% in coordination of care (as documented) at patient's floor/unit and/or counseling patient: (1) Acute appendicitis Acute appendicitis type: unspecified acute appendicitis type Qualified Code(s): K35.80 - Unspecified acute appendicitis
[2019-05-14] MEDS: DIGOXIN 0.125 MG TAB PO SCH (20:05)
[2019-05-15] MEDS: ACETAMINOPHEN 1,000 MG/100 ML VIAL IV PRN (00:07)
[2019-05-15] MEDS: PIPERACILLIN/TAZOBACTAM 3.375 GM in DEXTROSE 5% 100 ML IV SCH ×3 (04:13→19:34)
[2019-05-15] MEDS: HYDROmorphone INJ 0.5 MG/0.5 ML SYR IV PRN (04:17)
[2019-05-15] MEDS: LACTATED RINGER'S 1,000 ML IV SCH (05:02)
[2019-05-15] MEDS ORDERED: KETOROLAC TROMETHAMINE 15 MG/ML VIAL IV ONE (06:02)
[2019-05-15] MEDS: dilTIAZem HCL 240 MG CAPCR PO SCH (07:47)
[2019-05-15] MEDS: METOPROLOL SUCC 25MG EXT REL TAB PO SCH ×2 (07:47→20:36)
[2019-05-15 07:52] LABS: Basophils # (auto) 0.01 K/uL (0-0.2); Basophils % (auto) 0.1 %; Eosinophils # (auto) 0.01 K/uL (0-0.5); Eosinophils % (auto) 0.1 %; Hematocrit (blood only) 42.7 % (37-47); Hemoglobin 14.4 g/dL (12.0-16.0); Immature Granulocytes # (auto) 0.03 K/uL (0.00-0.02); Immature Granulocytes % (auto) 0.3 %; Lymphocytes # (auto) 0.65 K/uL (1.2-3.4); Lymphocytes % (auto) 6.3 %; Mean Corpuscular Hemoglobin 31.8 pg (25-34); Mean Corpuscular Hgb Conc 33.7 g/dL (32-36); Mean Corpuscular Volume 94.3 fL (80-100); Mean Platelet Volume 10.3 fL (7.4-10.4); Monocytes # (auto) 0.57 K/uL (0.11-0.59); Monocytes % (auto) 5.5 %; Neutrophils # (auto) 9.04 K/uL (1.4-6.5); Neutrophils % (auto) 87.7 %; Platelet Count 160 K/uL (130-400); RDW Coefficient of Variation 12.7 % (11.5-14.5); Red Blood Count 4.53 M/uL (4.2-5.4); White Blood Count 10.31 K/uL (4.8-10.8)
[2019-05-15 08:02] LABS: INR 1.1 (0.9-1.1); Prothrombin Time 11.1 Seconds (9.0-12.0)
[2019-05-15] MEDS ORDERED: HYDROCODONE/ACETAMOPHEN 5/325MG TAB PO PRN (08:23)
--- NOTE | 2019-05-15 08:24 | Surgery Progress Note ---
Date of Service May 15, 2019 Assessment & Plan (1) Acute appendicitis: POD#1 laparoscopic appendectomy Intraop appendix was noted to be inflamed, with some purulent material, without e/o perforation WBC 10 today, patient afebrile. Will continue IV abx for today. On discharge will plan for a 5-7 day course of augmentin Keep COURTNEY drain in place; plan to remove on day of discharge Will advance diet as tolerates Continue prn pain medication Hold off on Xarelto today with plans to restart it tomorrow Will plan for discharge once patient's pain is well controlled and clinically feeling better [facility] surgery covering this weekend as above. not ready for d/c yet. COURTNEY serous. can be removed prior to d/c. restart xarelto tomorrow. Subjective Patient with continued abdominal pain overnight that she states was not much better after surgery. However, now that she has been up and about this morning she thinks she is starting to feel better. She tolerated clear liquids this AM without nausea/vomiting. Physical Exam Physical Exam: awake/alert/sitting up in bed eating breakfast Constitutional: well developed and well nourished; no acute distress Respiratory: normal respiratory effort Gastrointestinal (Abdomen): Inspection/Auscultation: + abdominal surgical incision (c/d/i with dermabond) and + abdominal surgical drain present (serosang) Results & Data Vital Signs (Past 12 Hours) Vital Signs Temp Pulse Pulse Pulse Resp BP Pulse Ox 05/15/19 07:04 36.5 C 93 H 18 104/61 92 05/15/19 04:01 86 05/15/19 04:00 36.4 C L 87 19 93/58 L 94 05/15/19 00:03 84 100/64 05/14/19 23:23 36.3 C L 92 H 20 94/54 L 94 05/14/19 21:16 36.4 C L 89 16 99/61 L 96 PG Care Time/CCT Total # of Minutes Spent Total Time Spent with Patient: Total time spent is greater than 50% in coordination of care (as documented) at patient's floor/unit and/or counseling patient: (1) Acute appendicitis Acute appendicitis type: unspecified acute appendicitis type Qualified Code(s): K35.80 - Unspecified acute appendicitis
[2019-05-15 08:27] LABS: Albumin Level 2.4 gm/dl (3.4-5.0); BUN Creatinine Ratio 22.2 (10-20); Calcium 8.9 mg/dl (8.5-10.1); Creatinine Clr Calc Pharmacy 31.4 ml/min; Est GFR (African American) 48.2; Est GFR (Non-African American) 41.6; Magnesium 2.2 mg/dl (1.8-2.4); Potassium 4.4 mmol/L (3.5-5.1)
[2019-05-15 08:30] LABS: Albumin Globulin Ratio 0.6 (0.9-2); Bilirubin,Total 1.5 mg/dl (0.2-1); Globulin 3.9 gm/dl (2.5-4.0); Total Protein 6.3 gm/dl (6.4-8.2)
--- NOTE | 2019-05-15 16:18 | Hospitalist Progress Note ---
Date of Service May 15, 2019 Assessment & Plan (1) Acute appendicitis: S/p lap appy with Dr. Barr on 05/14. - No complications per operative report - Post-op care per primary team (2) Atrial fibrillation with RVR: Last dose of Xarelto was 05/13. - Currently rate controlled - Continue digoxin, metoprolol, Cardizem - Will restart Xarelto in 1-2 days depending on surgical team desire. (3) Hypercholesterolemia: Patient is on Lipitor at home. - Okay to hold for few days and restart Lipitor at discharge (4) HTN (hypertension): Blood pressure is currently controlled on the metoprolol, Cardizem. Somewhat low even today at 100/60. - Okay to keep holding spironolactone (5) DVT prophylaxis: SCDs - Will restart Xarelto for her afib when cleared by surgery Subjective Feeling very well today. Much less abdominal pain today. No fever. Daughter is mildly concerned that her speech is slightly slurred, but she does not feel it is too bad. I do not notice a difference from yesterday. Review of Systems Review of Systems: All systems reviewed & are unremarkable except as noted in HPI & below Physical Exam Constitutional: WD/WN, vitals as above Eyes: EOM intact bilaterally; no conjunctival abnormality ENMT: external ear and nose normal, oropharynx normal Neck: trachea midline, no thyromegaly normal visual inspection Respiratory: normal respiratory effort, lungs clear to auscultation no respiratory distress Cardiovascular: RRR, no murmur, no edema Gastrointestinal (Abdomen): Inspection/Auscultation: abdomen normal to inspection (Small scars from surgery); abdomen not distended Percussion/Palpation: abdomen soft; no guarding and abdomen not rigid Musculoskeletal: no cyanosis or clubbing, extremities motor strength 5/5 Skin: no rashes, warm and dry Neurologic: moves all extremities and awake Psychiatric: Orientation: alert, oriented to person and cooperative Results & Data Vital Signs (Past 12 Hours) Vital Signs Temp Pulse Resp BP BP Pulse Ox 05/15/19 15:06 36.4 C L 87 18 99/63 L 91 05/15/19 11:32 36.7 C 69 16 100/64 95 05/15/19 07:04 36.5 C 93 H 18 104/61 92 PG Care Time/CCT Total # of Minutes Spent Total Time Spent with Patient: Total time spent is greater than 50% in coordination of care (as documented) at patient's floor/unit and/or counseling patient: (1) Acute appendicitis Acute appendicitis type: unspecified acute appendicitis type Qualified Code(s): K35.80 - Unspecified acute appendicitis
[2019-05-15] MEDS: TRAMADOL HCL 50 MG TABLET PO PRN (20:37)
[2019-05-16] MEDS: PIPERACILLIN/TAZOBACTAM 3.375 GM in DEXTROSE 5% 100 ML IV SCH ×3 (04:37→20:00)
[2019-05-16] MEDS: TRAMADOL HCL 50 MG TABLET PO PRN ×2 (05:27→20:02)
[2019-05-16] MEDS: HYDROmorphone INJ 0.5 MG/0.5 ML SYR IV PRN (08:07)
--- NOTE | 2019-05-16 08:10 | Surgery Progress Note ---
Date of Service May 16, 2019 Assessment & Plan (1) Acute appendicitis: Status post laparoscopic appendectomy, postoperative day 2 Feels much better today Tolerating diet will advance to soft diet Encouraged ambulation Subjective Postoperative day #2 status post laparoscopic appendectomy Feels much better today Having much less pain Tolerating clear liquid diet Had bowel movement Passing flatus COURTNEY with serosanguineous drainage only Physical Exam Gastrointestinal (Abdomen): Inspection/Auscultation: + abdominal surgical incision (Clean, dry and intact); abdomen not distended Percussion/Palpation: + abdomen tender (Minimal incisional) and abdomen soft Results & Data Vital Signs (Past 12 Hours) Vital Signs Temp Pulse Pulse Resp BP BP Pulse Ox 05/16/19 07:36 36.4 C L 87 18 120/75 93 05/16/19 04:15 36.4 C L 112 H 20 121/69 96 05/15/19 22:42 36.6 C 104 H 20 122/77 92 (1) Acute appendicitis Acute appendicitis type: unspecified acute appendicitis type Qualified Code(s): K35.80 - Unspecified acute appendicitis
[2019-05-16] MEDS: METOPROLOL SUCC 25MG EXT REL TAB PO SCH ×2 (08:16→19:55)
[2019-05-16] MEDS: dilTIAZem HCL 240 MG CAPCR PO SCH (08:17)
[2019-05-16 09:26] LABS: Hemoglobin 13.4 g/dL (12.0-16.0); Mean Corpuscular Hemoglobin 31.5 pg (25-34); Mean Corpuscular Hgb Conc 34.4 g/dL (32-36); Mean Corpuscular Volume 91.5 fL (80-100); Mean Platelet Volume 9.7 fL (7.4-10.4); Platelet Count 188 K/uL (130-400); RDW Coefficient of Variation 12.8 % (11.5-14.5); RDW Standard Deviation 42.7 fL (36.4-46.3); Red Blood Count 4.26 M/uL (4.2-5.4); White Blood Count 10.95 K/uL (4.8-10.8)
[2019-05-16 10:01] LABS: Creatinine Clr Calc Pharmacy 35.6 ml/min; Est GFR (African American) 54.3; Est GFR (Non-African American) 46.8; Magnesium 2.4 mg/dl (1.8-2.4); Potassium 4.2 mmol/L (3.5-5.1)
[2019-05-16] MEDS: DIGOXIN 0.125 MG TAB PO SCH (16:10)
[2019-05-16] MEDS: POLYETHYLENE (MIRALAX) 17 GM PACK PO SCH ×2 (16:11→18:03)
[2019-05-16] MEDS ORDERED: RIVAROXABAN 15 MG TAB PO SCH (16:30)
--- NOTE | 2019-05-16 17:24 | Hospitalist Progress Note ---
Date of Service May 16, 2019 Assessment & Plan (1) Acute appendicitis: S/p lap appy with Dr. Barr on 05/14. - No complications per operative report - Post-op care per primary team - Apart from pain, seems to be recovering well. (2) Atrial fibrillation with RVR: Last dose of Xarelto was 05/13. - Currently rate controlled - Continue digoxin, metoprolol, Cardizem - Will restart Xarelto in 1-2 days depending on surgical team desire - Perhaps after drain removal. (3) Hypercholesterolemia: Patient is on Lipitor at home. - Okay to hold for few days and restart Lipitor at discharge - No urgent need to restart (4) HTN (hypertension): Blood pressure is currently controlled on the metoprolol, Cardizem. Somewhat low even today at 100/60. - Okay to keep holding spironolactone - BP stable on 05/16 (5) DVT prophylaxis: SCDs - Will restart Xarelto for her afib when cleared by surgery Subjective Had some increased pain in the morning. Needed one dose of Dilaudid. Now feeling well. Otherwise, no nausea, no emesis. No rash, bleeding of the incisions. Review of Systems Review of Systems: All systems reviewed & are unremarkable except as noted in HPI & below Physical Exam Constitutional: WD/WN, vitals as above Eyes: EOM intact bilaterally; no conjunctival abnormality ENMT: external ear and nose normal, oropharynx normal Neck: trachea midline, no thyromegaly normal visual inspection Respiratory: normal respiratory effort, lungs clear to auscultation no respiratory distress Cardiovascular: RRR, no murmur, no edema Gastrointestinal (Abdomen): Inspection/Auscultation: abdomen normal to inspection (Small scars from surgery) and + abdominal surgical drain present (Scant serosanguinous drainage); abdomen not distended Percussion/Palpation: abdomen soft; no guarding and abdomen not rigid Musculoskeletal: no cyanosis or clubbing, extremities motor strength 5/5 Skin: no rashes, warm and dry Neurologic: moves all extremities and awake Psychiatric: Orientation: alert, oriented to person and cooperative Results & Data Vital Signs (Past 12 Hours) Vital Signs Temp Pulse Pulse Pulse Resp BP BP 05/16/19 16:12 36.5 C 88 20 108/71 05/16/19 16:10 81 05/16/19 11:17 36.4 C L 81 18 99/71 L 05/16/19 07:36 36.4 C L 87 18 120/75 Pulse Ox 05/16/19 16:12 94 05/16/19 16:10 05/16/19 11:17 93 05/16/19 07:36 93 PG Care Time/CCT Total # of Minutes Spent Total Time Spent with Patient: Total time spent is greater than 50% in coordination of care (as documented) at patient's floor/unit and/or counseling patient: (1) Acute appendicitis Acute appendicitis type: unspecified acute appendicitis type Qualified Code(s): K35.80 - Unspecified acute appendicitis
[2019-05-17] MEDS: PIPERACILLIN/TAZOBACTAM 3.375 GM in DEXTROSE 5% 100 ML IV SCH ×2 (04:08→12:40)
[2019-05-17] MEDS: METOPROLOL SUCC 25MG EXT REL TAB PO SCH (07:47)
[2019-05-17] MEDS: POLYETHYLENE (MIRALAX) 17 GM PACK PO SCH (07:47)
[2019-05-17] MEDS: dilTIAZem HCL 240 MG CAPCR PO SCH (07:48)
--- NOTE | 2019-05-17 11:53 | Surgery Progress Note ---
Date of Service May 17, 2019 Assessment & Plan (1) Acute appendicitis: Postoperative day #3, status post laparoscopic appendectomy Much improved today Tolerating a diet and passing flatus Can discharge to home Discussed postoperative activity restrictions She see Dr. White in the office in approximately 2 weeks Subjective Postoperative day #3 status post laparoscopic appendectomy Woke up feeling much much better this morning The additional discomfort she was having yesterday is resolved Tolerated regular diet Denies nausea and vomiting Has been passing a lot of flatus but has not had a bowel movement Physical Exam Constitutional: no acute distress Gastrointestinal (Abdomen): Inspection/Auscultation: normal bowel sounds and + abdominal surgical incision (Clean, dry and intact); abdomen not distended Percussion/Palpation: + abdomen tender (Very mild right-sided only) and abdomen soft Results & Data Vital Signs (Past 12 Hours) Vital Signs Temp Pulse Resp BP Pulse Ox 05/17/19 11:30 36.5 C 88 18 112/78 93 05/17/19 08:00 36.5 C 82 18 116/74 93 05/17/19 04:11 36.6 C 74 20 106/74 92 (1) Acute appendicitis Acute appendicitis type: unspecified acute appendicitis type Qualified Code(s): K35.80 - Unspecified acute appendicitis
--- NOTE | 2019-05-17 15:43 | Hospitalist Progress Note ---
Date of Service May 17, 2019 Assessment & Plan (1) Acute appendicitis: S/p lap appy with Dr. Barr on 05/14. - No complications per operative report - Post-op care per primary team - Seems to be recovering well - outpatient follow up. (2) Atrial fibrillation with RVR: Last dose of Xarelto was 05/13. - Currently rate controlled - Continue digoxin, metoprolol, Cardizem - Restarted Xarelto on discharge. (3) Hypercholesterolemia: Patient is on Lipitor at home. - Restart Lipitor at discharge (4) HTN (hypertension): Blood pressure is currently controlled on the metoprolol, Cardizem. Somewhat low even today at 100/60. - Okay to keep holding spironolactone - BP stable on 05/17 - Restarted spironolactone for tomorrow. (5) DVT prophylaxis: SCDs - Will restart Xarelto for her afib when cleared by surgery Subjective Feeling well, less pain. Review of Systems Review of Systems: All systems reviewed & are unremarkable except as noted in HPI & below Physical Exam Constitutional: WD/WN, vitals as above Eyes: EOM intact bilaterally; no conjunctival abnormality ENMT: external ear and nose normal, oropharynx normal Neck: trachea midline, no thyromegaly normal visual inspection Respiratory: normal respiratory effort, lungs clear to auscultation no respiratory distress Cardiovascular: RRR, no murmur, no edema Gastrointestinal (Abdomen): Inspection/Auscultation: abdomen normal to inspection (Small scars from surgery) and + abdominal surgical drain present (Scant serosanguinous drainage); abdomen not distended Percussion/Palpation: abdomen soft; no guarding and abdomen not rigid Musculoskeletal: no cyanosis or clubbing, extremities motor strength 5/5 Skin: no rashes, warm and dry Neurologic: moves all extremities and awake Psychiatric: Orientation: alert, oriented to person and cooperative Results & Data Vital Signs (Past 12 Hours) Vital Signs Temp Pulse Pulse Resp BP BP Pulse Ox 05/17/19 12:13 36.5 C 88 87 18 112/78 99/63 L 93 05/17/19 11:30 36.5 C 88 18 112/78 93 05/17/19 08:00 36.5 C 82 18 116/74 93 05/17/19 04:11 36.6 C 74 20 106/74 92 PG Care Time/CCT Total # of Minutes Spent Total Time Spent with Patient: Total time spent is greater than 50% in coordination of care (as documented) at patient's floor/unit and/or counseling patient: (1) Acute appendicitis Acute appendicitis type: unspecified acute appendicitis type Qualified Code(s): K35.80 - Unspecified acute appendicitis
--- NOTE | 2019-05-18 08:29 | Discharge Summary ---
Date of Service May 18, 2019 Admission HPI Per Admitting Provider pt began with mild abdominal pain on Saturday....got better on Saturday but worse again on Saturday. Saw a NUTRITION INTERN who ordered a CT scan outpt which shows acute appendicitis. no perforation or abscess. ? developing phlegmon Principal Diagnosis 1. Acute appendicitis 2. Atrial fibrillation 3. Hypertension Discharge Exam Gastrointestinal (Abdomen) Inspection/Auscultation: + abdominal surgical incision (clean, dry); abdomen not distended Percussion/Palpation: abdomen soft Discharge Data Allergies Allergy/AdvReac Type Severity Reaction Status Date / Time Sulfa (Sulfonamide Allergy Mild RASH ON Verified 05/13/19 18:18 Antibiotics) CHEST Consultations 05/13/19 21:48 Consult Cardiology Routine Consult Case Management - Discharge Planning Routine Consult Hospitalist Routine Procedures Performed Operation Date: 05/14/19 13:10 Actual Procedures p Laparoscopic Appendectomy(Not Applicable) - Oni Barr, Hospital Course (1) Acute appendicitis: 88 y/o female with several days of abdominal pain had outpatient CT and was referred to the ED for appendicitis. She takes Xarelto for A-fib. She was admitted overnight and started on IV antibiotics and the hospitalist and cardiology services were consulted. The hope was to hold her Xarelto for 48 hours as cardiology recommended against reversal. Her pain however was increasing the next morning and she was taken for appendectomy that afternoon. The procedure was well tolerated, she did not have any perioperative bleeding. COURTNEY drain had been placed and was removed on POD 2 before her Xarelto was restarted. She had some discomfort that limited her diet and activity over the first 48 hours. By day three she was tolerating regular diet and oral analgesics and was stable for discharge home on oral antibiotics. Total Time Total Time Spent Total Time Spent (In Minutes): 15 Discharge Plan Discharge Items Patient Disposition: Home - Self-Care Reason For Visit: APPENDICITIS Discharge Diagnosis: laparoscopic appendectomy Activity: Per Instructions section Lifting: No more than 10 pounds Bathing Comment: you may shower Exercise/Sports: Wait until after follow-up appointment Exercise Comment: light activity for 3 weeks Driving/Machine Use: do not resume driving if you are taking narcotics for pain Non-emergency contact: Surgeon Call non-emergency contact if: you have any medication questions, your symptoms worsen, your pain is not controlled, you have a fever, your temperature is above 101.5, your wound has increased redness, your wound has increased drainage and your wound pain has increased Follow-up/Referrals: Oni Barr, DO [Surgeon] - (Please schedule follow up in clinic within 2 weeks. You may call the office sooner if you have any questions/concerns.) Maggi Garcia [Primary Care Provider] - Diet: Regular Addtl Attending Provider Instructions: Pending Studies at Discharge: No Stand-Alone Forms: My [facility] Medications and DC Order Prescriptions: New tramadol [Ultram] 50 mg tablet 50 mg PO Q4H PRN (Reason: pain) Qty: 10 RF: 0 amoxicillin-pot clavulanate [Augmentin] 875-125 mg tablet 1 tab PO BID Qty: 10 RF: 0 Continued metoprolol succinate 25 mg tablet extended release 24 hr 25 mg PO BID RF: 0 Xarelto 15 mg tablet 15 mg PO QPM RF: 0 spironolactone 25 mg tablet 25 mg PO DAILY RF: 0 diltiazem HCl 240 mg capsule,extended release 24 hr 240 mg PO DAILY RF: 0 metoprolol tartrate 25 mg tablet 25 mg PO BID PRN (Reason: Atrial Fibrillation) RF: 0 magnesium oxide 400 mg (241.3 mg magnesium) tablet 400 mg PO BID RF: 0 atorvastatin 20 mg tablet 20 mg PO QPM RF: 0 loratadine [Claritin] 10 mg tablet 10 mg PO DAILY PRN (Reason: allergy symptoms) RF: 0 ibuprofen 200 mg capsule 200 mg PO QID PRN (Reason: Pain) RF: 0 multivitamin [Daily Multi-Vitamin] tablet 1 tab PO DAILY RF: 0 acetaminophen [Tylenol Extra Strength] 500 mg tablet 500 - 1,000 mg PO Q6H PRN (Reason: Pain) RF: 0 cholecalciferol (vitamin D3) 2,000 unit capsule 2,000 units PO BID RF: 0 digoxin [Digox] 125 mcg tablet 125 mcg PO Q2D Qty: 45 RF: 1 Discharge Orders: Discharge Order (Routine); Ordered 05/17/19 Ordered By: Onofre Lopez Admission Data Admit Date/Time: 05/13/19 19:51 Attending Provider: Oni Barr Admit Provider: Oni Barr Primary Care Provider: Maggi Garcia Other Providers: Derek Gurrola ; Daniele Diego ; Yandel Harmon Other Interventions: Discharge Summary Assessment (RN) Last Done: 05/17/19 12:13 DC Date/Time DO NOT enter until pt leaves facility: 05/17/19 13:27
== END 2019-05-17 13:27 | disposition home or self-care (01) ==
LOC: ED 16:50 → 2W 16:50